=== PATIENT | male | born 1985 | race Caucasian/White ===

== ENCOUNTER 2017-10-23 16:36 | Emergency (ER) | payer BC ==
--- NOTE | 2017-10-23 17:38 | EDM.PDOC ---
ED HPI GENERAL MEDICAL PROBLEM - General Chief Complaint: Neck Problem Stated Complaint: BACK PAIN Time Seen by Provider: 10/23/17 16:54 Source of Information: Reports: Patient History Limitations: Reports: No Limitations - History of Present Illness INITIAL COMMENTS - FREE TEXT/NARRATIVE: HISTORY AND PHYSICAL: History of present illness: Patient is a 32-year-old male who presents to the emergency room today with complaints of neck and upper back pain. He states he was playing on a trampoline and he had reached out to grab his child when he felt pain to his lower neck into bilateral trapezius muscles. Review of systems: As per history of present illness and below otherwise all systems reviewed and negative. Past medical history: As per history of present illness and as reviewed below otherwise noncontributory. Surgical history: As per history of present illness and as reviewed below otherwise noncontributory. Social history: No reported history of drug or alcohol abuse. Family history: As per history of present illness and as reviewed below otherwise noncontributory. Physical exam: General: HEENT: Atraumatic, normocephalic, pupils equal and reactive bilaterally, negative for conjunctival pallor or scleral icterus, mucous membranes moist, throat clear, neck supple, nontender, trachea midline. No drooling or trismus noted. No meningeal signs Lungs: Clear to auscultation, breath sounds equal bilaterally, chest nontender. Heart: S1S2, regular rate and rhythm without overt murmur Abdomen: Soft, nondistended, nontender. Negative for masses or hepatosplenomegaly. Negative for costovertebral tenderness. Pelvis: Stable nontender. Genitourinary: Deferred. Rectal: Deferred. Skin: Intact, warm, dry. No lesions or rashes noted. Extremities: Atraumatic, negative for cords or calf pain. Neurovascular unremarkable. Neuro: Awake, alert, oriented. Cranial nerves II through XII unremarkable. Cerebellum unremarkable. Motor and sensory unremarkable throughout. Exam nonfocal. Notes: CT is within normal limits. Supportive care measures were reviewed and discussed. He voices understanding and is agreeable to plan of care. Denies any further questions or concerns at this time. Diagnostics: C-spine CT Therapeutics: Declines Prescription: Flexeril 10mg PRN (#30) Impression: Muscle Strain Plan: 1. Rest, ice and gentle stretching to the painful areas. 2. Take the medications as prescribed. 3. Follow up with your primary care provider in the next 1-2 days. Return to the ED as needed and as discussed. Definitive disposition and diagnosis as appropriate pending reevaluation and review of above. 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 - Infectious Disease History Infectious Disease History: Reports: Chicken Pox - Past Surgical History HEENT Surgical History: Reports: Oral Surgery, Other (See Below) Other HEENT Surgeries/Procedures: jaw, sinus lift Social & Family History - Family History Cardiac: Reports: CAD - Tobacco Use Smoking Status *Q: Current Every Day Smoker Years of Tobacco use: 6 Packs/Tins Daily: 0.5 - Caffeine Use Caffeine Use: Reports: Coffee, Energy Drinks - Alcohol Use Days Per Week of Alcohol Use: 3 Number of Drinks Per Day: 6 Total Drinks Per Week: 18 - Recreational Drug Use Recreational Drug Use: No ED ROS GENERAL - Review of Systems Review Of Systems: ROS reveals no pertinent complaints other than HPI. ED EXAM, UPPER BACK/NECK PAIN - Physical Exam Exam: See Below (See dictation) Course - Vital Signs Last Recorded V/S: Last Vital Signs Temp 97.4 F 10/23/17 16:49 Pulse 78 10/23/17 18:25 Resp 18 10/23/17 18:25 BP 127/94 H 10/23/17 18:25 Pulse Ox 98 10/23/17 18:25 Departure - Departure Time of Disposition: 18:14 Disposition: Home, Self-Care 01 Clinical Impression: Muscle strain - Discharge Information Prescriptions: Cyclobenzaprine [Flexeril] 10 mg PO TID PRN #30 tab PRN Reason: Pain Instructions: Muscle Strain, [id number] Referrals: Jaycob Currie MD [Primary Care Provider] - Forms: ED Department Discharge Additional Instructions: The following information is given to patients seen in the emergency department who are being discharged to home. This information is to outline your options for follow-up care. We provide all patients seen in our emergency department with a follow-up referral. The need for follow-up, as well as the timing and circumstances, are variable depending upon the specifics of your emergency department visit. If you don't have a primary care physician on staff, we will provide you with a referral. We always advise you to contact your personal physician following an emergency department visit to inform them of the circumstance of the visit and for follow-up with them and/or the need for any referrals to a consulting specialist. The emergency department will also refer you to a specialist when appropriate. This referral assures that you have the opportunity for follow-up care with a specialist. All of these measure are taken in an effort to provide you with optimal care, which includes your follow-up. Under all circumstances we always encourage you to contact your private physician who remains a resource for coordinating your care. When calling for follow-up care, please make the office aware that this follow-up is from your recent emergency room visit. If for any reason you are refused follow-up, please contact the [facility] Emergency Department at and asked to speak to the emergency department charge nurse. [facility] [address] [place] [id number] 1. Rest, ice and gentle stretching to the painful areas. 2. Take the medications as prescribed. 3. Follow up with your primary care provider in the next 1-2 days. Return to the ED as needed and as discussed.
[2017-10-23 18:27] VITALS: BP 127/94
--- NOTE | 2017-10-23 18:29 | CT ---
EXAM DATE: 10/23/17 PATIENT'S AGE: 32 Patient: MOLLY MCNAIR Facility: [place], [place] Site . Site : 1985 Study: CT Spine Cervical WO CONT [id number] 5:36:37 PM Ordering Physician: Doctor Trinh Final Report: HISTORY: Neck, back, shoulder pain. Injury. TECHNIQUE: CT cervical spine without contrast. COMPARISON: None. FINDINGS: No fracture or subluxation. Craniocervical junction is intact. Disc spaces are maintained. Facet joints are maintained. No lytic or blastic bone lesions. Canal and foramina are patent. Paraspinal soft tissues are unremarkable. IMPRESSION: No acute cervical spine abnormality. Please note that all CT scans at this facility use dose modulation, iterative reconstruction, and/or weight-based dosing when appropriate to reduce radiation dose to as low as reasonably achievable. Dictated by Taz Antunez MD @ Oct 23 2017 6:09PM (Electronic Signature) Report Signed by Proxy. MTDD
== END 2017-10-23 18:25 | disposition home or self-care (01) ==
LOC: MW.ED 16:36
DX: S16.1XXA Strain of muscle, fascia and tendon at neck level, initial encounter (principal); X58.XXXA Exposure to other specified factors, initial encounter; Y93.44 Activity, trampolining; F17.210 Nicotine dependence, cigarettes, uncomplicated
CPT/HCPCS: 72125; 72125-26; 99283-25

== ENCOUNTER 2018-04-02 18:07 | Emergency (ER) | payer BC ==
[2018-04-02 18:29] VITALS: BP 139/94
--- NOTE | 2018-04-02 19:03 | EDM.PDOC ---
ED HPI GENERAL MEDICAL PROBLEM - General Chief Complaint: Upper Extremity Injury/Pain Stated Complaint: FELL ON ICE- HURT LEFT ELBOW Time Seen by Provider: 04/02/18 19:01 Source of Information: Reports: Patient History Limitations: Reports: No Limitations - History of Present Illness INITIAL COMMENTS - FREE TEXT/NARRATIVE: HISTORY AND PHYSICAL: History of present illness: Patient is a 32-year-old male here with complaint of left elbow pain. He states he slipped on the ice this afternoon landing directly on his left elbow. He is complaining of pain in the history of hordeolum initially had numbness and tingling hands that this has since resolved. He denies any proximal extremity pain. He is otherwise in his usual state of health and has no other complaints at this time. Review of systems: As per history of present illness and below otherwise all systems reviewed and negative. Past medical history: As per history of present illness and as reviewed below otherwise noncontributory. Surgical history: As per history of present illness and as reviewed below otherwise noncontributory. Social history: No reported history of drug or alcohol abuse. Family history: As per history of present illness and as reviewed below otherwise noncontributory. Physical exam: General: Patient sitting comfortably in no acute distress and nontoxic appearing HEENT: Atraumatic, normocephalic, pupils reactive, negative for conjunctival pallor or scleral icterus, mucous membranes moist, throat clear, neck supple, nontender, trachea midline. No meningeal signs. Lungs: Clear to auscultation, breath sounds equal bilaterally, chest nontender. Heart: S1S2, regular, negative for clicks, rubs, or overt murmur. Abdomen: Soft, nondistended, nontender. Negative for masses or hepatosplenomegaly. Negative for costovertebral tenderness. Pelvis: Stable nontender. Genitourinary: Deferred. Rectal: Deferred. Extremities: No obvious swelling or deformity. Small abrasion to the posterior right elbow. No medial or lateral elbow pain, pain to palpation of the posterior aspect. negative for cords or calf pain. Neurovascular unremarkable. Neuro: Awake, alert, oriented. Cranial nerves II through XII unremarkable. Cerebellum unremarkable. Motor and sensory unremarkable throughout. Exam nonfocal. Notes: Diagnostics: left elbow x-ray Therapeutics: None Prescriptions: None Impression: Left elbow injury Plan: 1. Ice, elevate, and motrin as instructed 2. Follow up with primary care provider 3. Return to ED as needed as discussed Definitive disposition and diagnosis as appropriate pending reevaluation and review of above. left elbow Pain Score (Numeric/FACES): 7 - Related Data Allergies Allergy/AdvReac Type Severity Reaction Status Date / Time avocado Allergy Difficulty Verified 10/23/17 16:53 Breathing ibuprofen Allergy Difficulty Verified 10/23/17 16:53 Breathing melon Allergy Difficulty Verified 10/23/17 16:53 Breathing Home Meds: Home Meds . 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 ED EXAM, GENERAL - Physical Exam Exam: See Below (see dictation) Course - Vital Signs Last Recorded V/S: Last Vital Signs Temp 98.9 F 04/02/18 18:27 Pulse 80 04/02/18 18:27 Resp 16 04/02/18 18:27 BP 139/94 H 04/02/18 18:27 Pulse Ox 96 04/02/18 18:27 Departure - Departure Time of Disposition: 19:15 Disposition: Home, Self-Care 01 Condition: Good Clinical Impression: Injury of left elbow - Discharge Information Referrals: Jaycob Currie MD [Primary Care Provider] - Forms: ED Department Discharge Additional Instructions: The following information is given to patients seen in the emergency department who are being discharged to home. This information is to outline your options for follow-up care. We provide all patients seen in our emergency department with a follow-up referral. The need for follow-up, as well as the timing and circumstances, are variable depending upon the specifics of your emergency department visit. If you don't have a primary care physician on staff, we will provide you with a referral. We always advise you to contact your personal physician following an emergency department visit to inform them of the circumstance of the visit and for follow-up with them and/or the need for any referrals to a consulting specialist. The emergency department will also refer you to a specialist when appropriate. This referral assures that you have the opportunity for follow-up care with a specialist. All of these measure are taken in an effort to provide you with optimal care, which includes your follow-up. Under all circumstances we always encourage you to contact your private physician who remains a resource for coordinating your care. When calling for follow-up care, please make the office aware that this follow-up is from your recent emergency room visit. If for any reason you are refused follow-up, please contact the [facility] Emergency Department at and asked to speak to the emergency department charge nurse. [facility] [address] [place] [address] [id number] [address] [id number] 1. Ice, elevate, and motrin as instructed 2. Follow up with primary care provider 3. Return to ED as needed as discussed
--- NOTE | 2018-04-02 19:09 | CR ---
INDICATION: fall TECHNIQUE: Left elbow 3 views. COMPARISON: None. FINDINGS: Bones: Alignment is normal. No fractures or bone lesions. Joint spaces: Unremarkable. Soft tissues: Unremarkable. IMPRESSION: Unremarkable left elbow. Dictated by: Jose Alfredo Chavez MD @ 04/02/2018 19:08:16 (Electronically Signed)
== END 2018-04-02 19:25 | disposition home or self-care (01) ==
LOC: MW.ED 18:07
DX: S50.311A Abrasion of right elbow, initial encounter (principal); W00.0XXA Fall on same level due to ice and snow, initial encounter; Z91.018 Allergy to other foods; Z88.8 Allergy status to other drugs, medicaments and biological substances
CPT/HCPCS: 73080-26-LT; 73080-LT; 99282; 99283

== ENCOUNTER 2022-02-22 13:54 | Emergency (ER) | payer OTHER ==
[2022-02-22 15:43] VITALS: BP 136/92; PULSE 81
== END 2022-02-22 15:38 | disposition home or self-care (01) ==
LOC: MW.ED 13:54
DX: F07.81 Postconcussional syndrome (principal); Z91.018 Allergy to other foods; Z88.6 Allergy status to analgesic agent
CPT/HCPCS: 99283

== ENCOUNTER 2023-08-20 14:10 | Emergency (ER) | payer BC ==
[2023-08-20] MEDS: Metoclopramide 10 MG/2 ML SDV IVPUSH ONE (14:37)
[2023-08-20] MEDS: Albuterol/Ipratropium 3.0-0.5 MG/3 ML Neb Soln NEB ONE (14:37)
[2023-08-20] MEDS: diphenhydrAMINE 50 MG/ML SDV IVPUSH ONE (14:37)
[2023-08-20] MEDS: Sodium Chloride 0.9% 1,000 ML IV ONE (14:37)
[2023-08-20] MEDS: Sodium Chloride 0.9% 2.5 ML Syringe FLUSH PRN (14:37)
[2023-08-20] MEDS: Sodium Chloride 0.9% 10 ML Syringe FLUSH PRN (14:37)
[2023-08-20 14:47] LABS: BASOPHILS ABSOLUTE AUTO 0.02 K/uL (0.00-0.20); BASOPHILS PERCENT AUTO 0.2 % (0.0-1.0); EOSINOPHILS ABSOLUTE AUTO 0.19 K/uL (0.00-0.45); EOSINOPHILS PERCENT AUTO 1.6 % (0.0-6.0); HEMATOCRIT 42.2 % (42.0-52.0); HEMOGLOBIN 14.4 g/dL (14.0-18.0); IMMATURE GRAN ABSOLUTE AUTO 0.03 K/uL (0.00-0.05); IMMATURE GRAN PERCENT AUTO 0.2 % (0.0-0.4); LYMPHOCYTES ABSOLUTE AUTO 1.76 K/uL (1.00-4.80); LYMPHOCYTES PERCENT AUTO 14.5 % (24.0-44.0); MEAN CORPUSCULAR HEMOGLOBIN 28.2 pg (28.0-32.0); MEAN CORPUSCULAR HGB CONC 34.1 g/dL (32.0-36.0); MEAN CORPUSCULAR VOLUME 82.6 fL (83.0-99.0); MEAN PLATELET VOLUME 9.5 fL (9.4-12.4); MONOCYTES PERCENT AUTO 6.6 % (0.0-8.0); NEUTROPHILS PERCENT AUTO 76.9 % (41.0-71.0); PLATELET COUNT,PLT 283 K/uL (150-400); RED BLOOD CELL COUNT 5.11 M/uL (4.52-5.90)
[2023-08-20 15:04] LABS: INR 0.97 (0.86-1.11)
[2023-08-20 15:16] LABS: BILIRUBIN TOTAL 0.2 mg/dL (0.2-1.0); BLOOD UREA NITROGEN,BUN 6 mg/dL (7.0-18.0); CHLORIDE,CL 103 mmol/L (98-107); EST CRCL DRUG DOSING (CG) 100.16 mL/min
[2023-08-20 15:18] LABS: A/G RATIO 0.8 (0.9-1.6); ALANINE AMINOTRANSFERASE,ALT 27 IU/L (14-63); ALBUMIN 3.2 g/dL (3.4-5.0); ALKALINE PHOSPHATASE 83 U/L (46-116); ASPARTATE AMNIOTRANSFERASE,AST 16 IU/L (15-37); CALCIUM 8.6 mg/dL (8.5-10.1); CARBON DIOXIDE,CO2 26.5 mmol/L (21.0-32.0); GLUCOSE RANDOM 101 mg/dL (74-106); POTASSIUM,K 4.2 mmol/L (3.5-5.1); SODIUM,NA 140 mmol/L (136-148)
[2023-08-20 15:20] LABS: ESTIMATED GFR 99 mL/min (>60)
[2023-08-20 16:10] VITALS: PULSE 88
[2023-08-20 17:14] VITALS: BP 116/63
== END 2023-08-20 17:13 | disposition home or self-care (01) ==
LOC: MW.ED 14:10
DX: J45.909 Unspecified asthma, uncomplicated (principal); J32.8 Other chronic sinusitis; B96.89 Other specified bacterial agents as the cause of diseases classified elsewhere; Z79.899 Other long term (current) drug therapy; Z91.018 Allergy to other foods; Z88.8 Allergy status to other drugs, medicaments and biological substances
CPT/HCPCS: 36415; 70450; 71046; 80053; 83735; 84484; 85025; 85610; 87635; 93005; 94640; J1200; J2765; J3490; J7030; 93010; 96361; 96374; 96375; 99284; 99285-25; J7620-GY; U0002